=== PATIENT | female | born 1990 | race Two or more races ===

== ENCOUNTER 2021-05-29 09:34 | Emergency (ER) | payer OTHER ==
[~2021-05-29] VITALS: Ht 157.5 cm; Wt 45.4 kg
--- NOTE | 2021-05-29 09:57 | NUR ---
PT CAME TO ER C/O L SIDED CHEST PAIN RADIATING TO UPPER BACK S/P LAST NIGHT. PS 4/10, INCREASES TO 8/10 UPON INSPIRATION. DENIES RECENT TRAVELING OR HX OF BLOOD CLOTS. HX OF ROSA'S DISEASE, TAKES LEVOTHYROXINE. AAOX4, BREATHING EVEN AND UNLABORED. POX 100% ON RA. ASSISTED TO ER BED 11. ON MONITOR, VS STABLE. CHANGED TO GOWN. WILL CONTINUE TO MONITOR.
--- NOTE | 2021-05-29 10:08 | NUR ---
EKG DONE AT BEDSIDE
[2021-05-29 10:49] LABS: CALCIUM, SERUM 8.4 mg/dL (8.5-10.1); CARBON DIOXIDE 26 mmol/L (21-32); CHLORIDE 107 mmol/L (98-107); CREATININE 0.6 mg/dL (0.6-1.3); GLUCOSE 90 mg/dL (74-106); POTASSIUM 3.5 mmol/L (3.5-5.1); SODIUM SERUM 141 mmol/L (136-145); UREA NITROGEN, BLOOD 10 mg/dL (7-18)
[2021-05-29 10:50] LABS: BASOPHILS % (AUTO) 0.6 % (0.0-2.0); EOSINOPHILS % (AUTO) 1.5 % (0.0-6.0); HEMATOCRIT 35 % (33-45); LYMPHOCYTES # (AUTO) 1.1 K/uL (0.8-4.8); MEAN CORPUSCULAR HGB CONC 34 g/dl (31.0-36.0); MEAN CORPUSCULAR VOLUME 92 fL (82-100); MONOCYTES # (AUTO) 0.2 K/uL (0.1-1.30); MONOCYTES % (AUTO) 5.3 % (2.0-12.0); NEUTROPHILS # (AUTO) 2.2 K/uL (1.8-8.9); NEUTROPHILS % (AUTO) 60.6 % (43.0-81.0); PLATELET COUNT (AUTO) 241 K/uL (150-450); RED BLOOD CELL COUNT(AUTO) 3.82 MIL/uL (4.0-5.2); WHITE BLOOD COUNT (AUTO) 3.6 K/uL (4.3-11.0)
[2021-05-29] MEDS ORDERED: MORPHINE SULFATE INJ 4 MG/ML DISP.SYRIN IV ONE (11:30)
[2021-05-29] MEDS ORDERED: MORPHINE SULFATE 8 MG/ML VIAL IV ONE (11:30)
[2021-05-29] MEDS ORDERED: ONDANSETRON HCL/PF - ER 4 MG/2 ML VIAL IV ONE (11:30)
[2021-05-29] MEDS ORDERED: KETOROLAC TROMETHAMINE INJ 30 MG/ML VIAL IV ONE ×2 (11:30→13:00)
--- NOTE | 2021-05-29 11:46 | NUR ---
PATIENT REFUSED TORADOL AND ZOFRAN. PT STATES SHE WILL ONLY RECEIVE MORPHINE.
[2021-05-29] MEDS ORDERED: MORPHINE SULFATE INJ 4 MG/ML DISP.SYRIN ONE (12:02)
--- NOTE | 2021-05-29 12:08 | NUR ---
PT AMBULATED TO RESTROOM. STEADY GAIT. VS STABLE
[2021-05-29] MEDS ORDERED: KETOROLAC TROMETHAMINE INJ 30 MG/ML VIAL ONE (12:15)
[2021-05-29] MEDS ORDERED: IBUP-1957 PO (12:16)
[2021-05-29] MEDS ORDERED: CYCL5TAB PO (12:16)
[2021-05-29] MEDS ORDERED: CYCLOBENZAPRINE 10 MG TABLET PO ONE (12:30)
[2021-05-29] MEDS ORDERED: CYCLOBENZAPRINE 10 MG TABLET ONE (12:46)
[2021-05-29 12:50] VITALS: BP 114/68
--- NOTE | 2021-05-29 12:50 | NUR ---
IV removed. Catheter intact and site benign. Pressure and 4x4 applied to site. No bleeding noted. Patient discharged to home in stable condition. Written and verbal after care instructions given. Patient verbalizes understanding of instruction.
== END 2021-05-29 12:51 | disposition home or self-care (01) ==
LOC: ER 09:59
DX: R07.89 Other chest pain (principal); Z88.6 Allergy status to analgesic agent
CPT/HCPCS: 36415; 71045; 80048; 84484; 85025; 85378; 93005 ×2; 96374; 96375; 99285; J1885; J2270; J2405